=== PATIENT | female | born 1960 | race Hispanic/Latino ===

== ENCOUNTER → 2017-05-13 | Outpatient (CLI) | payer OTHER ==
--- NOTE | 2017-05-13 19:38 | Diagnostic Imaging Report ---
PROCEDURE:X-RAY CERVICAL SPINE, THREE VIEWS COMPARISON:None. INDICATIONS:NECK PAIN FINDINGS: The lateral view is visualized from the skull base to T1. The vertebral bodies are well-aligned. There are no fractures, lytic or blastic lesions. Mild disc space narrowing at C5-C6 with posterior disc osteophyte complex. The C1/C2-odontoid interval is normal. The tip of the dens on odontoid view is obscured by dental hardware. The pre-vertebral soft tissues are normal. CONCLUSION: Mild disc space narrowing at C5-C6 with posterior disc osteophyte complex. Dictated by: Quentin Bolaños M.D. on 05/13/2017 at 19:47 Electronically approved by: Quentin oBlaños M.D. on 05/13/2017 at 19:47
== END ==
LOC: RAD 17:52
PROVIDERS: ATTEND Family Medicine
DX: M54.2 Cervicalgia (principal)
CPT/HCPCS: 72040

== ENCOUNTER → 2020-09-20 | Outpatient (CLI) | payer BC | LOC: DX 08:23 | PROVIDERS: ATTEND Family Medicine | DX: K21.9 Gastro-esophageal reflux disease without esophagitis (principal) | CPT/HCPCS: 74246 ==